=== PATIENT | female | born 1950 | race Caucasian/White ===

== ENCOUNTER 2025-01-19 08:32 | Outpatient (CLI) | payer MEDICARE, MEDICAID ==
--- NOTE | 2025-01-19 11:09 | VASCULAR REPORT ---
Left lower extremity venous duplex Clinical History: swelling Comparison: None Findings: Duplex Doppler evaluation of the deep venous system of the left lower extremity from the common femor al vein to the popliteal vein including color Doppler and spectral/pulsed waveform analysis was perfo rmed. The bilateral common femoral vein demonstrates appropriate compressibility and waveform variability . Left GSV appears per previously treated in the thigh The femoral vein demonstrates appropriate compressibility and waveform variability . The deep femoral vein demonstrates appropriate compressibility and waveform variability . The popliteal vein demonstrates appropriate compressibility and waveform variability . There is normal compressibility at the tibioperoneal trunk. Impression: No left femoropopliteal venous thrombosis. Possible left popliteal fossa Reece's cyst. If clinical concern/symptoms persist or worsen, short-interval follow-up study is suggested.
== END 2025-01-19 23:59 | disposition home or self-care (01) ==
LOC: RAD 08:32
PROVIDERS: ATTEND Nurse Practitioner
DX: I83.92 Asymptomatic varicose veins of left lower extremity (principal)
CPT/HCPCS: 93971